=== PATIENT | female | born 1940 | race Caucasian/White ===

== ENCOUNTER → 2024-06-03 | Outpatient (CLI) | payer MEDICARE, OTHER, SELFPAY ==
[2024-06-03 09:58] LABS: Collection Type, Urine Clean Catch
[2024-06-03 10:51] LABS: Bacteria,Urine 2+; Bilirubin,Urine Negative (Negative); Blood,Urine Negative (Negative); Clarity,Urine Clear (Clear/Hazy); Color,Urine Lt-Yellow (Lt Yel-Yel); Culture Indicated,Urine Yes; Glucose, Urine Negative (Negative); Ketones,Urine Negative (Negative); Leukocyte Esterase,Urine Negative (Negative); Nitrite,Urine Negative (Negative); PH,Urine 6.5 (5.0-7.0); Protein,Urine Trace (Neg - Trace); RBC,Urine 3 /hpf (0-3); Specific Gravity,Urine 1.012 (1.001-1.035); Squamous Epithelial Cell,Urine 5 /hpf (0-5); Urobilinogen,Urine Negative mg/dL (0.0-1.0); WBC,Urine 2 /hpf (0-5)
== END | disposition home or self-care (01) ==
LOC: SLDO 09:47
PROVIDERS: Referring Provider Internal Medicine; Visit Provider Internal Medicine
DX: E11.65 Type 2 diabetes mellitus with hyperglycemia (principal)
CPT/HCPCS: 81001; 87086

== ENCOUNTER → 2024-06-07 | Outpatient (CLI) | payer MEDICARE, OTHER, SELFPAY ==
--- NOTE | 2024-06-07 11:12 | XR_ITS ---
Examination: Abdomen sonogram, complete Date and time of exam: June 07, 2024 1113 hours INDICATIONS: Onset right lower abdominal pain beginning one week ago. Technique: Multiple real-time grayscale transabdominal sonographic images of the abdomen have been obtained. Findings: No gallstones identified Gallbladder wall 0.48 cm no edema Common bile duct 0.2 cm Pancreas obscured by bowel gas Aorta not enlarged Liver 17.9 cm lobular contour no focal liver lesions Normal hepatopedal portal venous oh Patent IVC Right kidney 8.9 x 5.1 x 4.1 cm cortex 1.5 cm Left kidney 8.7 x 5.9 x 4.5 cm cortex 1.4 cm Moderate bilateral renal parenchymal scar formation No hydronephrosis Spleen 10.2 cm IMPRESSION: Abnormal gallbladder wall thickening 0.48 cm, consider HIDA scan or MRCP follow-up to exclude cholecystitis Mild hepatomegaly primary hepatocellular disease pattern Moderate bilateral renal parenchymal scar formation
--- NOTE | 2024-06-07 11:12 | XR_ITS ---
Examination: Pelvic ultrasound, transabdominal, complete Technique: Transabdominal ultrasound of the pelvis performed using grayscale imaging Date and time of exam: June 07, 2024 1112 hours INDICATIONS: Pelvic pain beginning 6 weeks ago, hysterectomy FINDINGS: Absent uterus Right ovary 2.3 x 1.6 x 2.0 cm arterial flow Left ovary 2.9 x 1.7 x 2.6 cm arterial flow 19 mm follicular cyst No fluid in the cul-de-sac IMPRESSION: 19 x 10 x 14 mm left ovarian follicular cyst
== END | disposition home or self-care (01) ==
PROVIDERS: PCP Internal Medicine; Referring Provider Internal Medicine; Visit Provider Internal Medicine
DX: N83.02 Follicular cyst of left ovary (principal); R93.2 Abnormal findings on diagnostic imaging of liver and biliary tract; R16.0 Hepatomegaly, not elsewhere classified; N28.89 Other specified disorders of kidney and ureter
CPT/HCPCS: 76700; 76856

== ENCOUNTER 2024-07-21 12:13 | Outpatient (RCR) | payer MEDICARE, OTHER, SELFPAY ==
--- NOTE | 2024-07-21 12:30 | XR_ITS ---
Examination: JAMA, hepatobiliary radioisotope scan Gallbladder ejection fraction study. Date and time of exam: July 21, 2024 1241 hours INDICATIONS: Lower abdominal pain and cramping beginning 2 months ago, hypertension, abnormal thickening of the gallbladder wall on abdomen sonogram June 07, 2024 Technique: 5.8 mCi of 99M Hepatolite administered. Serial imaging then obtained from immediate through 60 minutes. 1.2 mcg selective catheter Kinevac administered for gallbladder ejection fraction study. Findings: Radioisotope activity within the liver is reasonably homogenous. Gallbladder, common bile duct small bowel activity noted Impression: Gallbladder activity Normal gallbladder ejection fraction, 93%
== END 2024-07-26 23:59 | disposition home or self-care (01) ==
LOC: SNUC 12:13
PROVIDERS: PCP Internal Medicine; Referring Provider Internal Medicine; Visit Provider Internal Medicine
DX: K76.9 Liver disease, unspecified (principal); K82.9 Disease of gallbladder, unspecified
CPT/HCPCS: 78227; A9537; J2805